=== PATIENT | female | born 1965 | race Caucasian/White ===

== ENCOUNTER 2018-03-20 06:48 | Day surgery (SDC) | payer OTHER ==
[~2018-03-20 06:48] MED LIST: ALLEGRA ALLERG180 MG PO; CLARINEX2.5 MG/5 M PO; DYMISTA NASAL S23 GM NS; INDERAL LA80 MG PO; NEURONTIN300 MG PO; OXYC1TAB9 PO
== END 2018-03-20 10:35 | disposition home or self-care (01) ==
LOC: AMB-ENDOS 06:48
DX: K57.30 Diverticulosis of large intestine without perforation or abscess without bleeding (principal)

== ENCOUNTER 2020-07-07 07:32 | Day surgery (SDC) | payer OTHER | END 2020-07-07 14:35 | disposition home or self-care (01) | LOC: AMB-ENDOS 07:32 | PROVIDERS: ATTEND Surgery | DX: D12.2 Benign neoplasm of ascending colon (principal); D12.4 Benign neoplasm of descending colon; Z20.828 Contact with and (suspected) exposure to other viral communicable diseases; K62.4 Stenosis of anus and rectum ==

== ENCOUNTER 2022-06-03 18:18 | Emergency (ER) | payer OTHER ==
[~2022-06-03] VITALS: Ht 162.6 cm; Wt 73.5 kg
[2022-06-03] MEDS ORDERED: ZETIA10 MG PO (18:49)
[2022-06-03] MEDS ORDERED: PREVACID30 MG PO (18:50)
== END 2022-06-04 04:17 ==
LOC: ER 18:18
DX: R10.9 Unspecified abdominal pain (principal); K57.32 Diverticulitis of large intestine without perforation or abscess without bleeding; Z91.013 Allergy to seafood; Z88.6 Allergy status to analgesic agent; Z88.2 Allergy status to sulfonamides; Z88.8 Allergy status to other drugs, medicaments and biological substances
CPT/HCPCS: 74176; Q9965

== ENCOUNTER 2022-06-11 06:14 | Day surgery (SDC) | payer OTHER ==
[~2022-06-11 06:14] MED LIST changes: +PREVACID30 MG PO; +ZETIA10 MG PO
== END 2022-06-11 14:15 | disposition home or self-care (01) ==
LOC: AMB-ENDOS 06:14
PROVIDERS: ATTEND Surgery
DX: D12.2 Benign neoplasm of ascending colon (principal); Z20.822 Contact with and (suspected) exposure to COVID-19; K57.30 Diverticulosis of large intestine without perforation or abscess without bleeding; Z88.6 Allergy status to analgesic agent; Z91.040 Latex allergy status